=== PATIENT | female | born 1970 | race Caucasian/White ===

== ENCOUNTER 2021-11-26 11:26 | Emergency (ER) | payer OTHER ==
[2021-11-26 12:01] VITALS: TEMP 98.7; BMI 33.5
[2021-11-26] MEDS ORDERED: predniSONE 20 MG TABLET (UD) PO ONE (13:05)
[2021-11-26] MEDS ORDERED: ACETAMINOPHEN 500 MG TABLET (FP) PO ONE (13:06)
[2021-11-26] MEDS ORDERED: LORATADINE 10 MG TABLET PO ONE (13:08)
[2021-11-26] MEDS ORDERED: ALBUTEROL SO4 HFA INHALER IH ONE ×2 (13:11→13:16)
[2021-11-26] MEDS ORDERED: ALBUTEROL SO4 2.5/IPRATROPIUM 0.5 INH SOL 3 ML VIAL.NEB. NEB SCH (13:15)
[2021-11-26] MEDS ORDERED: predniSONE 20 MG TABLET (UD) ONE (13:15)
[2021-11-26] MEDS ORDERED: ACETAMINOPHEN 325 MG TABLET (FP) ONE (13:16)
[2021-11-26] MEDS ORDERED: LORATADINE 10 MG TABLET ONE (13:16)
[2021-11-26] MEDS: ALBUTEROL SO4 2.5/IPRATROPIUM 0.5 INH SOL 3 ML VIAL.NEB. NEB SCH ×3 (13:31→14:16)
[2021-11-26] MEDS ORDERED: MAGNESIUM SULF 50% (8.12 MEQ/2 ML-1 GM VIAL) IVPB ONE (15:01)
[2021-11-26] MEDS ORDERED: MAGNESIUM SULFATE IN WATER 2 GM/50 ML IVPB IVPB ONE (15:25)
[2021-11-26 16:37] LABS: BASO % 0.5 % (0-2.0); EOS % 1.3 % (0-4.5); HEMATOCRIT 43.8 % (32.4-45.2); HEMOGLOBIN 14.5 GM/dL (10.7-15.3); LYMPH % 18.4 % (8-40); MCH 30.6 pg (25.7-33.7); MEAN CELL VOLUME 92.8 fl (80-96); MEAN PLT VOLUME 8.2 fl (7.5-11.1); MONO % 16.8 % (3.8-10.2); PLATELET COUNT 161 10^3/uL (134-434); RBC 4.72 M/mm3 (3.60-5.2); RDW 13.5 % (11.6-15.6); WHITE BLOOD COUNT 3.5 K/mm3 (4.0-10.0)
[2021-11-26 18:11] VITALS: BP 137/84; PULSE 86
[2021-11-26 18:20] LABS: CALCIUM 8.6 mg/dL (8.5-10.1)
[2021-11-26 18:21] LABS: ALBUMIN 3.6 g/dl (3.4-5.0); BLOOD UREA NITROGEN 13.6 mg/dL (7-18)
[2021-11-26 18:24] LABS: CREATININE 0.5 mg/dL (0.55-1.3)
[2021-11-26 18:25] LABS: BILIRUBIN,TOTAL 1.2 mg/dL (0.2-1)
[2021-11-26 18:26] LABS: TOT PROT 7.3 g/dl (6.4-8.2)
== END 2021-11-26 19:01 | disposition home or self-care (01) ==
LOC: JER 11:26
PROC: 3E0F7GC Introduction of Other Therapeutic Substance into Respiratory Tract, Via Natural or Artificial Opening (ICD-10-PCS; principal; 2021-11-26)
PROC: 3E033GC Introduction of Other Therapeutic Substance into Peripheral Vein, Percutaneous Approach (ICD-10-PCS; 2021-11-26)
DX: J45.21 Mild intermittent asthma with (acute) exacerbation (principal)
CPT/HCPCS: 0241U-QW; 36415; 71045-TC-FY; 80053; 85025; 93005; 93010; 99285-25

== ENCOUNTER 2021-12-13 01:42 | Emergency (ER) | payer OTHER ==
[2021-12-13 01:53] VITALS: BMI 34.3
[2021-12-13] MEDS ORDERED: morphine CARPU-JECT 2 MG/1 ML DISP.SYRIN IVPUSH ONE ×2 (02:55→09:06)
[2021-12-13] MEDS ORDERED: FAMOTIDINE 20 MG TABLET PO ONE (02:55)
[2021-12-13] MEDS ORDERED: ONDANSETRON 4 MG/2 ML VIAL IVPUSH ONE (02:55)
[2021-12-13] MEDS ORDERED: LACTATED RINGERS SOLUTION 1000 ML INFUS.BAG IV ONE (02:57)
[2021-12-13] MEDS ORDERED: FAMOTIDINE 20 MG TABLET ONE (03:10)
[2021-12-13] MEDS ORDERED: ONDANSETRON 4 MG/2 ML VIAL ONE (03:10)
[2021-12-13 03:19] LABS: BASO % 0.9 % (0-2.0); EOS % 1.2 % (0-4.5); HEMATOCRIT 39.9 % (32.4-45.2); HEMOGLOBIN 13.5 GM/dL (10.7-15.3); LYMPH % 20.2 % (8-40); MCH 30.4 pg (25.7-33.7); MCHC 33.9 g/dl (32.0-36.0); MEAN CELL VOLUME 89.7 fl (80-96); MEAN PLT VOLUME 8.1 fl (7.5-11.1); MONO % 19.3 % (3.8-10.2); NEUT % 58.4 % (42.8-82.8); PLATELET COUNT 138 10^3/uL (134-434); RBC 4.45 M/mm3 (3.60-5.2); RDW 13.4 % (11.6-15.6); WHITE BLOOD COUNT 3.4 K/mm3 (4.0-10.0)
[2021-12-13 03:39] LABS: CALCIUM 8.6 mg/dL (8.5-10.1)
[2021-12-13 03:40] LABS: ALBUMIN 3.3 g/dl (3.4-5.0); BLOOD UREA NITROGEN 11.2 mg/dL (7-18)
[2021-12-13 03:42] LABS: BILIRUBIN,DIRECT 3.5 mg/dL (0.0-0.2)
[2021-12-13 03:43] LABS: CREATININE 0.8 mg/dL (0.55-1.3)
[2021-12-13 03:44] LABS: TOT PROT 6.8 g/dl (6.4-8.2)
[2021-12-13 03:45] LABS: BILIRUBIN,TOTAL 4.3 mg/dL (0.2-1)
[2021-12-13] MEDS ORDERED: PIPERACILLIN/TAZOB 4.5 GM 4.5 GM in DEXTROSE 5%-WATER 100 ML IVPB ONE (09:24)
[2021-12-13] MEDS ORDERED: SODIUM CHLORIDE 1,000 ML IV SCH (09:30)
[2021-12-13 11:22] VITALS: TEMP 97.7
[2021-12-13 15:00] VITALS: BP 120/80; PULSE 83
== END 2021-12-13 15:07 | disposition short-term general hospital (02) ==
LOC: JER 01:42
PROC: 3E033GC Introduction of Other Therapeutic Substance into Peripheral Vein, Percutaneous Approach (ICD-10-PCS; principal; 2021-12-13)
DX: R10.11 Right upper quadrant pain (principal); R17 Unspecified jaundice; R94.5 Abnormal results of liver function studies
CPT/HCPCS: 0241U-QW; 36415; 74176-TC; 74181-TC; 76705-TC; 80053; 82248; 83690; 84703; 85025; 93005; 93010; 99285-25

== ENCOUNTER 2023-04-27 04:58 | Day surgery (SDC) | payer OTHER ==
[2023-04-23 11:08] VITALS: BMI 34.3
[2023-04-27] MEDS ORDERED: ROPIVACAINE HCL 0.5% 30ML VIAL ONE (10:27)
[2023-04-27] MEDS ORDERED: DEXAMETHASONE SOD PHOSPHATE 10 MG/1 ML VIAL ONE (10:27)
[2023-04-27] MEDS ORDERED: MIDAZOLAM HCL 2 MG/2 ML SINGLE DOSE VIAL ONE ×2 (10:29→11:28)
[2023-04-27] MEDS ORDERED: PROPOFOL 40 ML ONE (11:28)
[2023-04-27] MEDS ORDERED: FENTANYL CITRATE/PF 50 MCG/ML VIAL ONE ×2 (11:35→11:41)
[2023-04-27] MEDS ORDERED: ceFAZolin SODIUM 1 GM VIAL IVPB ONE (11:45)
[2023-04-27] MEDS ORDERED: oxyCODONE HCL 5 MG TABLET PO PRN (12:52)
[2023-04-27] MEDS ORDERED: ONDANSETRON 4 MG/2 ML VIAL IVPUSH PRN (12:52)
[2023-04-27] MEDS ORDERED: LACTATED RINGERS SOLUTION 1,000 ML IV SCH (13:00)
[2023-04-27 16:33] VITALS: RESP 18
[2023-04-27 16:39] VITALS: BP 128/82; PULSE 79; TEMP 97.9
== END 2023-04-27 15:30 | disposition home or self-care (01) ==
LOC: JASU-SURG 04:58
PROVIDERS: ATTEND Orthopaedic Surgery
PROC: 0PB94ZZ Excision of Right Clavicle, Percutaneous Endoscopic Approach (ICD-10-PCS; 2023-04-27)
PROC: 0RNJ4ZZ Release Right Shoulder Joint, Percutaneous Endoscopic Approach (ICD-10-PCS; principal; 2023-04-27 12:00)
DX: M75.41 Impingement syndrome of right shoulder (principal); M19.011 Primary osteoarthritis, right shoulder
CPT/HCPCS: 94760; J1100